=== PATIENT | male | born 1945 | race Caucasian/White ===

== ENCOUNTER 2020-01-14 13:36 | Outpatient (CLI) | payer MEDICARE, OTHER, SELFPAY ==
--- NOTE | ~2020-01-14 | CT_ITS ---
EXAMINATION: CT lung screening EXAM DATE: 01/14/2020 15:14 INDICATION: Personal history of nicotine dependence. TECHNIQUE: Spiral low dose CT of the chest without contrast. Axial, coronal and sagittal images were reviewed. The dose-length product (DLP) for this examination was 97.73 mGy-cm. The exposure was ta ilored according to patient size (auto mA exposure control), and iterative reconstruction (ASIR) was used as additional dose reduction technique. Comparison is made to prior examination from 07/15/2016. FINDINGS: Chronic left lower lobe medial segmental atelectasis unchanged. There are a couple of 2-3 mm nodules identified, axial images 76, 57. Tracheobronchial tree is patent. There is no mediastina l, hilar or axillary lymphadenopathy. There are no pleural or pericardial effusions. There is no pneumothorax. Heart normal in size. There is minimal coronary arterial calcification, arterial sc lerosis. Upper abdomen is unremarkable. There is mild thoracic spondylosis without osteoblastic or osteolytic lesions identified. IMPRESSION: Lung-RADS category 2, benign appearance or behavior (<1% chance of malignancy); recommend continued LDCT screening in 1 year. Reviewed, dictated and finalized at location A.
== END 2020-01-14 13:37 | disposition home or self-care (01) ==
PROVIDERS: PCP Family Medicine; Visit Provider Physician Assistant
DX: Z12.2 Encounter for screening for malignant neoplasm of respiratory organs (principal); Z87.891 Personal history of nicotine dependence
CPT/HCPCS: G0297

== ENCOUNTER 2021-09-28 10:21 | Outpatient (CLI) | payer MEDICARE, OTHER, SELFPAY ==
--- NOTE | 2021-09-28 10:30 | ECG_ITS ---
Measurements Intervals [place] Rate: 92 P: 64 UT: 197 QRS: 38 QRSD: 94 T: 58 QT: 347 QTc: 431 Interpretive Statements SINUS RHYTHM WITH SINUS ARRHYTHMIA BASELINE ARTIFACT- I, II, III, AVR, AVL, AVF, V1-V2 NORMAL ECG Electronically Signed On 09-28-2021 11:03:45 COMPUTER INFORMATION SYSTEMS PROFESSOR by Roque Urban D.O.
[2021-09-28 10:49] LABS: Basophils Absolute Auto 0.1 K/mm3 (0.0-0.1); Basophils Percent Auto 0.5 % (0.2-1.2); Eosinophils Absolute Auto 0.4 K/mm3 (0-0.3); Eosinophils Percent Auto 2.4 % (0-4.4); Hematocrit 47.1 % (42.0-52.0); Hemoglobin 15.5 g/dL (14.0-18.0); Immature Granulocyte Absolute 0.08 K/mm3 (0.00-0.031); Immature Granulocyte Percent A 0.5 % (0-0.5); Lymphocytes Absolute Auto 1.79 K/mm3 (0.9-3.2); Lymphocytes Percent Auto 11.8 % (18.3-44.2); Mean Corpuscular HGB Conc 32.9 g/dl (32-36); Mean Corpuscular Hemoglobin 31.8 pg (26-34); Mean Corpuscular Volume 96.5 fl (80-100); Mean Platelet Volume 8.9 fl (7.4-10.4); Monocytes Absolute Auto 0.9 K/mm3 (0.1-0.6); Monocytes Percent Auto 6.1 % (2.6-8.5); Neutrophils Absolute Auto 11.9 K/mm3 (1.3-6.7); Neutrophils Percent Auto 78.7 % (45.5-73.1); Platelet Count Result 223 k/mm3 (150-375); Red Blood Count 4.88 M/mm3 (4.6-6.20); Red Cell Distribution Width 14.1 % (11.5-14.5); White Blood Count 15.2 K/mm3 (4.5-10.0)
[2021-09-28 11:00] LABS: Prothrombin Time 13.1 Seconds (11.1-14.7)
[2021-09-28 11:01] LABS: Partial Thromboplastin Time 29.4 SECONDS (22.3-36.8)
[2021-09-28 11:02] LABS: Anion Gap 4 mmol/L (8-16); Blood Urea Nitrogen 12 mg/dL (9-20); Calcium 9.3 mg/dL (8.4-10.2); Carbon Dioxide 29 mmol/L (22-30); Chloride 101 mmol/L (98-107); Estimated Glomerular Filt Rate > 60; Glucose 112 mg/dL (65-110); Potassium 3.8 mmol/L (3.4-5.0); Sodium 134 mmol/L (137-145)
== END 2021-09-28 10:22 | disposition home or self-care (01) ==
LOC: ANHSURGERY 10:24
PROVIDERS: PCP Family Medicine; Visit Provider Urology
DX: Z01.818 Encounter for other preprocedural examination (principal); N32.9 Bladder disorder, unspecified; E78.5 Hyperlipidemia, unspecified; I49.9 Cardiac arrhythmia, unspecified; Z51.81 Encounter for therapeutic drug level monitoring; Z79.899 Other long term (current) drug therapy
CPT/HCPCS: 36415; 80048; 85025; 85610; 85730; 87086; 87147; 87181; 87186; 93005

== ENCOUNTER 2021-10-05 01:48 | Day surgery (SDC) | payer MEDICARE, OTHER, SELFPAY ==
[2021-09-23 11:18] VITALS: BMI 22.8
--- NOTE | 2021-09-23 11:24 | PC.NURSE ---
Report to the Outpatient Waiting Room, entrance under the green pavilion located off [facility], at time 0730 on date __10/05/21 . OR Time: . - You and your visitor will be asked a series of questions to screen for COVID 19 for your protection. - A mask is required within the hospital. Preoperative COVID Testing Requirements: No COVID Test needed if: (proof is required; if not received patient will have Rapid Test prior to entry) - Patient has received COVID Vaccine at least 14 days prior to procedure date or - Patient has positive COVID test result within last 90 days of surgery date. COVID Test needed if above criteria is not met If not COVID vaccinated a COVID test must be conducted within 72 hours of surgery and patient is asked to isolate self from time of testing until procedure. You will go to the [facility] for your COVID testing. The [facility] is located at the corner of [address] [facility]. You will only be called if COVID results are positive and your surgeon may reschedule your elective surgery date. Patients may have clear liquids (water, carbonated beverages, clear teas, apple juice) until 3 hours prior to surgery with a maximum of 20 ounces. - No food from midnight until time of surgery - Infants may have breast milk until 4 hours before surgery, infant formula 6 hours prior to surgery. - Children will be allowed to drink immediately following surgery. If applicable, please bring a bottle or sippy cup to assist with drinking. Juice, water, soda, and popsicles are readily available. For infants on formula, please bring formula the day of surgery. Pacifiers are allowed. Take the following medications with a SIP of water the morning of surgery: _NONE Medications to discontinue per physician ____ALL VITAMINS 3 DAYS PRE OP Date to take last dose10/01/21 Please no make-up, nail welsh, hairspray, perfume, deodorant, or body powder the day of surgery. No jewelry (including any body piercings) or valuables the day of surgery, leave them at home. Please take a shower or bath the night before, or the morning of, surgery with an antibacterial soap. Wear comfortable, loose fitting clothing. Children are encouraged to wear pajamas. - Jewelry must be removed prior to entering the operating room. Rings and piercings that are not removed may be cut off. - The hospital will not accept responsibility for valuables. - Please leave all valuables, including medications, at home the day of surgery. If you are going home after surgery, a licensed day haul or farm charter bus driver must drive you home. - NO public transportation without another adult. - We recommend that an adult stay with you for 24 hours following discharge. - We also recommend that you do not drive, make important decision, drink alcoholic beverages, or take any drugs that were not prescribed by your health care provider for at least 24 hours after your discharge time. For Pediatric surgeries, we recommend two adults accompany the child home (only one inside the building at this time). One visitor will be allowed to accompany the patient into the hospital. Patients visitor will be instructed to remain with patient at all times or leave the building. We will allow the visitor to come back to the postoperative area when patient is ready. Follow any additional instructions given to you from your surgeon. Telephone instructions given to _PATIENT and asked if any additional questions and then verbalized understanding. Patient advised to call surgeon office or pre surgery nurse liaison [phone] if any additional questions.
--- NOTE | ~2021-10-05 | XR_ITS ---
EXAMINATION: XR retrograde pyelo w/stent RT DATE: 10/05/2021 09:34 INDICATION: Right internal ureteral stent placement TECHNIQUE: Fluoroscopic images from a right internal ureteral stent placement are submitted for daniel dalal 36 seconds of fluoroscopy time. FINDINGS: There is a right double-J internal ureteral stent projecting in expected position, with proximal Stanton loop at the level of the renal pelvis and distal loop in the pelvis within the bladder lumen. IMPRESSION: 1. Right internal ureteral stent placement. Please refer to real-time procedural findings for detai ls. Reviewed, dictated and finalized at location A. LINE OPERATOR IMPRESSION: 1. Right internal ureteral stent placement. Please refer to real-time procedu ral findings for details.
--- NOTE | 2021-10-05 07:35 | WPDHPUPDATE1 ---
History and Physical Update Update Date/Time: 10/05/21 07:35 History and Physical has been reviewed, including an updated exam of the patient. There are NO changes in the patient's condition. Risks, benefits, and alternatives have been discussed and questions answered. Patient agrees to proceed with procedure. Proceed with turbt
[2021-10-05 07:57] VITALS: BP 116/79; PULSE 73; RESP 16; TEMP 36.9; O2SAT 97
--- NOTE | 2021-10-05 08:41 | WPDANESEPPF ---
Anes - Initial Pre Proc Eval Procedure: Operation Date: 10/05/21 09:30 Proposed Procedures p Trans Urethral Resection Bladder Tumor - Markus Moreno MD s Possible Cystoscopy, Possible Right Stent Placement - Markus Moreno MD Date/Time: 10/05/21 08:41 Surgeon: Markus Moreno MD Pre Op Diagnosis: bladder lesion, gross hematuria Patient Data Age: 76 Gender: M Height: 1.75 m Weight: 69.4 kg Last Vital Signs Temp 36.9 C 10/05/21 07:57 Pulse 73 10/05/21 07:57 Resp 16 10/05/21 07:57 BP 116/79 10/05/21 07:57 Pulse Ox 97 10/05/21 07:57 Allergies Allergy/AdvReac Type Severity Reaction Status Date / Time No Known Allergies Allergy Verified 10/05/21 07:33 Home Medications Medication Instructions Recorded Confirmed Type atorvastatin [Lipitor] 10 mg PO EVERY OTHER DAY 09/23/21 10/05/21 History multivit with min-folic acid 1 tablet PO DAILY 09/23/21 10/05/21 History [Adult One Daily Multivitamin] sulfamethoxazole-trimethoprim 1 tablet PO BID 10/05/21 10/05/21 History Patient hx anesthesia problems: none Family hx anesthesia problems: none Results Review: All pre-operative results and documents have been reviewed as part of the pre-operative evaluation. [facility] Past Medical History Medical History COPD (chronic obstructive pulmonary disease) Overweight (BMI 25.0-29.9) Tubular adenoma Family History Family History Mother Patient's mother is Father Family history of cardiovascular disease Cerebrovascular accident Social History Social History Smoking packs per day: 1 Smoking cigarettes per day: 20.0 Years smoked: 58 Smoking pack-years: 58.00 Smoking status: Current every day smoker Tobacco type: cigarettes Alcohol intake: current Drinks per week: 28 Alcohol use details: WHISKEY Living arrangements: with family Spiritual care concerns: No Anes - Eval Final PreProcedure Day of Procedure 10/05/21 08:41 Patient weight: normal Heart: regular rate and rhythm Lungs: decreased breath sounds Airway: Mallampati scale class II Neurological: alert and oriented Last oral intake: >/= 8 hours ASA classification: III Emergent: no Anesthetic plan: proceed Anesthesia type and monitoring: general LMA and standard monitoring Results Review: All pre-operative results and documents have been reviewed as part of the pre-operative evaluation. Informed Consent: The patient's anesthetic plan and its attendant risks and benefits were discussed with the patient/family/POA. Questions were solicited and answers provided to the satisfaction of the patient/family/POA.
[2021-10-05] MEDS: ceFAZolin 2 GM/D5W 50 ML 2 GM/50 ML BAG IVPB (08:49)
--- NOTE | 2021-10-05 09:22 | SUR.OPER ---
6fr CONTOUR RIGHT URETERAL STENT
[2021-10-05] MEDS: LIDOCAINE HCL 2% GEL UROJET 10 ML PKG MUCOUS MEM (09:26)
--- NOTE | 2021-10-05 09:29 | W.PM.PROC2 ---
Procedure Note - Detailed Date of Procedure 10/05/21 Pre-op Diagnosis bladder lesion, gross hematuria Post-op Diagnosis same Procedure Performed Cystoscopy, right retrograde pyelogram, right ureteral stent placement 6 Portuguese contour, transurethral resection of small bladder tumor 1.5 cm Surgeon Markus Moreno MD Anesthesia general Description of Procedure Patient is taken to the operative suite correctly identified. Once anesthesia was obtained he was placed in dorsal lithotomy position and prepped draped usual sterile fashion. The urethra was dilated up to 30 Portuguese. Twenty-four Portuguese resectoscope sheath was inserted into bladder. He has a 1.5 cm tumor just lateral and superior to the right ureteral orifice. This tumor was then resected and the base was sent separately. Given its location it was difficult to take a very deep bite as it was where the intramural ureter was. Hemostasis was achieved using electrocautery. We then did a pyelogram and placed a 6 Portuguese contour stent with the proximal end coiled in the renal pelvis this the bladder. This allowed the area to heal and hopefully prevent any scarring or scar tissue to compromise the intramural ureter. 2% viscous lidocaine was inserted urethra patient is taken recovery stable condition. Will plan on removing the stent in 2 weeks time. Estimated Blood Loss 0 Drains Yes Packing No Pathology yes Complications No immediate complications Condition stable Disposition PACU
[2021-10-05 09:35] VITALS: BP 121/84; PULSE 82; RESP 16; TEMP 36.9; O2SAT 100
[2021-10-05] MEDS: LACTATED RINGERS 1,000 ML 30 ML IV CONT ×2 (09:35)
[2021-10-05 09:49] VITALS: BP 105/73; PULSE 69; RESP 18; O2SAT 100
[2021-10-05 10:05] VITALS: BP 122/72; PULSE 67; RESP 19; O2SAT 96
[2021-10-05 10:15] VITALS: BP 113/76; PULSE 66; RESP 16
[2021-10-05 10:40] VITALS: BP 122/77; PULSE 79; RESP 16
== END 2021-10-05 10:45 | disposition home or self-care (01) ==
PROVIDERS: PCP Family Medicine; Visit Provider Urology
PROC: 0TBB8ZZ Excision of Bladder, Via Natural or Artificial Opening Endoscopic (ICD-10-PCS; CPT 52234; principal; 2021-10-05 09:30)
PROC: (CPT 52352; 2021-10-05 09:30)
DX: C67.8 Malignant neoplasm of overlapping sites of bladder (principal); R31.0 Gross hematuria; J44.9 Chronic obstructive pulmonary disease, unspecified; F17.210 Nicotine dependence, cigarettes, uncomplicated
CPT/HCPCS: 52234; 74420; 88305; A9270; C1758; C1769; C2617; J0690; J1100; J2250; J2405; J2704; J3010; J7120; Q9966

== ENCOUNTER 2021-10-06 19:26 | Emergency (ER) | payer MEDICARE, OTHER, SELFPAY ==
[2021-10-06 19:26] VITALS: BP 119/102; PULSE 79; RESP 18; TEMP 36.7; O2SAT 97
[2021-10-06 19:39] VITALS: BP 114/81; PULSE 82; RESP 22; TEMP 36.6; O2SAT 100
--- NOTE | 2021-10-06 20:09 | ED.MALEGU ---
HPI - Male Genitourinary General Chief complaint: Urogenital-Male Stated complaint: POST-OP HEMATURIA Time Seen by Provider: 10/06/21 19:45 Source: patient History of Present Illness HPI Narrative: Patient presents with hematuria. Reports he had a mass removed from his bladder yesterday as a small amount of hematuria that cleared was doing well and then had return of his hematuria he was concerned regarding the volume so he came to the ER for further evaluation. Denies any lightheadedness denies any abdominal pain reports he is able to completely void denies passage of blood clots. Denies use of blood thinners. Related Data Home Medications Medication Instructions Recorded Confirmed atorvastatin [Lipitor] 10 mg PO EVERY OTHER DAY 09/23/21 10/05/21 multivit with min-folic acid 1 tablet PO DAILY 09/23/21 10/05/21 sulfamethoxazole-trimethoprim 1 tablet PO BID 10/05/21 10/05/21 Allergies Allergy/AdvReac Type Severity Reaction Status Date / Time No Known Allergies Allergy Verified 10/05/21 07:33 Review of Systems Review of Systems: CONSTITUTIONAL: Denies fever, chills, or sweats. EYES: Denies visual changes, redness, or discharge. ENT: Denies rhinorrhea, congestion, sore throat, or otalgia. CARDIOVASCULAR: Denies chest pain, palpitations, or edema. RESPIRATORY: Denies cough or dyspnea. GASTROINTESTINAL: Denies abdominal pain, nausea, vomiting, or diarrhea. GENITOURINARY: Denies dysuria or hematuria. SKIN: Denies rash or itching. MUSCULOSKELETAL: Denies back pain, joint pain, or myalgia. NEUROLOGIC: Denies headache, numbness, dizziness, or weakness. PSYCHIATRIC: Denies anxiety or depression. All systems reviewed & are unremarkable except as noted in HPI and below PMFSH Past Medical History Medical History COPD (chronic obstructive pulmonary disease) Overweight (BMI 25.0-29.9) Tubular adenoma Family History Family History Mother Patient's mother is Father Family history of cardiovascular disease Cerebrovascular accident Social History Social History Smoking packs per day: 1 Smoking cigarettes per day: 20.0 Years smoked: 58 Smoking pack-years: 58.00 Smoking status: Current every day smoker Tobacco type: cigarettes Alcohol intake: current Drinks per week: 28 Alcohol use details: MILEY Spiritual care concerns: No Exam Narrative: GENERAL: Well-appearing, well-nourished, and in no acute distress. HEAD: Normocephalic, atraumatic. EYES: PERRLA and EOMI. ENT: Nares clear, no rhinorrhea or epistaxis. Mucous membranes moist. NECK: Supple. No masses. No JVD ABDOMEN: Soft, nontender, nondistended, normal active bowel sounds. Urine at bedside with gross hematuria no clots EXTREMITIES: Normal range of motion. No edema. SKIN: Warm, dry, no rash. NEURO: No focal deficits. Alert and oriented x3. PSYCH: Normal mood and affect. Course Reevaluation(s) Reevaluation #1: Discussed with Dr. Roach with urology hematuria likely related to recent procedure and is appropriate to follow-up with his urologist as an outpatient. Patient is comfortable outpatient plan. Date: 10/06/21 Time: 20:18 Vital Signs Vital signs: Vital Signs Temperature 36.7 C 10/06/21 19:26 Pulse Rate 79 10/06/21 19:26 Respiratory Rate 18 10/06/21 19:26 Blood Pressure 119/102 H 10/06/21 19:26 Pulse Oximetry 97 10/06/21 19:26 Temperature 36.6 C 10/06/21 19:39 Pulse Rate 82 10/06/21 19:39 Respiratory Rate 22 H 10/06/21 19:39 Blood Pressure 114/81 10/06/21 19:39 Pulse Oximetry 100 10/06/21 19:39 MDM - Male Genitourinary MDM Narrative Medical decision making narrative: H&P as above, vss, pt looks clinically well, exam no abdominal pain, labs/img considered, symptomatic relief available as needed, on re
== END 2021-10-06 21:00 | disposition home or self-care (01) ==
LOC: ANHED 20:41
PROVIDERS: Emergency Provider Emergency Medicine; PCP Family Medicine
DX: R31.9 Hematuria, unspecified (principal); Z98.890 Other specified postprocedural states; J44.9 Chronic obstructive pulmonary disease, unspecified; E66.3 Overweight; Z68.22 Body mass index [BMI] 22.0-22.9, adult; F17.210 Nicotine dependence, cigarettes, uncomplicated
CPT/HCPCS: 99281

== ENCOUNTER 2021-12-21 01:09 | Day surgery (SDC) | payer MEDICARE, OTHER, SELFPAY ==
[2021-12-09 10:47] VITALS: BMI 22.8
[2021-12-21 08:28] VITALS: BP 104/83; PULSE 102; RESP 16; TEMP 36.1; O2SAT 100
[2021-12-21] MEDS: LACTATED RINGERS 1,000 ML 150 ML IV CONT (08:38)
--- NOTE | 2021-12-21 08:39 | P.PNAN_ITS ---
Anes - Initial Pre Proc Eval Procedure: Operation Date: 12/21/21 09:45 Proposed Procedures p Screening Colonoscopy - Cruzito Goss MD Date/Time: 12/21/21 08:39 Surgeon: Cruzito Goss MD Pre Op Diagnosis: hx of colon polyps Patient Data Age: 76 Gender: M Height: 1.75 m Weight: 67.1 kg Last Vital Signs Temp 97 F L 12/21/21 08:28 Pulse 102 H 12/21/21 08:28 Resp 16 12/21/21 08:28 BP 104/83 12/21/21 08:28 Pulse Ox 100 12/21/21 08:28 Allergies Allergy/AdvReac Type Severity Reaction Status Date / Time No Known Allergies Allergy Verified 12/21/21 08:27 Home Medications Medication Instructions Recorded Confirmed Type atorvastatin [Lipitor] 10 mg PO EVERY OTHER DAY 09/23/21 12/09/21 History multivit with min-folic acid 1 tablet PO DAILY 09/23/21 12/09/21 History sulfamethoxazole-trimethoprim 1 tablet PO BID 10/05/21 12/09/21 History [Bactrim DS] Patient hx anesthesia problems: none Family hx anesthesia problems: none Results Review: All pre-operative results and documents have been reviewed as part of the pre-operative evaluation. [facility] Past Medical History Medical History COPD (chronic obstructive pulmonary disease) Overweight (BMI 25.0-29.9) Tubular adenoma Family History Family History Mother Patient's mother is Father Family history of cardiovascular disease Cerebrovascular accident Social History Social History Smoking packs per day: 1 Smoking cigarettes per day: 20.0 Years smoked: 53 Smoking pack-years: 53.00 Smoking status: Current every day smoker Tobacco type: cigarettes Alcohol intake: current Drinks per week: 28 Alcohol use details: WHISKEY Substance use type: does not use Spiritual care concerns: No Anes - Eval Final PreProcedure Day of Procedure 12/21/21 08:39 Patient weight: normal Heart: regular rate and rhythm Lungs: clear to auscultation Airway: Mallampati scale class II Neurological: alert and oriented Last oral intake: >/= 8 hours ASA classification: III Emergent: no Anesthetic plan: proceed Anesthesia type and monitoring: general GIVS and standard monitoring Results Review: All pre-operative results and documents have been reviewed as part of the pre-operative evaluation. Informed Consent: The patient's anesthetic plan and its attendant risks and benefits were discussed with the patient/family/POA. Questions were solicited and answers provided to the satisfaction of the patient/family/POA.
--- NOTE | 2021-12-21 08:40 | WPDGICN ---
Assessment and Plan Assessment and plan (1) History of colon polyps: Code(s): Z86.010 - Personal history of colonic polyps Status: Acute Assessment and Plan: Patient has a history of a colon polyp removed from the colon in 2020. Plan is for surveillance colonoscopy at this time. Further recommendations will be given after endoscopy. GI Consult Note Consult date/time: 12/21/21 08:40 HPI: Jose Luis Han is a 76 year old male Presents for screening colonoscopy. Patient has a history of benign colon polyp removed from the colon in 2019. He reports his current weight appetite bowel movements are normal. He is recovering having recently been found to have bladder cancer. Screening colonoscopy is advised at this time. His family history is noncontributory. Review of Systems Review of Systems: All systems reviewed & are unremarkable except as noted in HPI and below PMFSH Past Medical History Medical History COPD (chronic obstructive pulmonary disease) Overweight (BMI 25.0-29.9) Tubular adenoma Family History Family History Mother Patient's mother is Father Family history of cardiovascular disease Cerebrovascular accident Social History Social History Smoking packs per day: 1 Smoking cigarettes per day: 20.0 Years smoked: 53 Smoking pack-years: 53.00 Smoking status: Current every day smoker Tobacco type: cigarettes Alcohol intake: current Drinks per week: 28 Alcohol use details: HALIEEY Substance use type: does not use Spiritual care concerns: No Meds Home Medications and Allergies Home Medications Medication Instructions Recorded Confirmed Type atorvastatin [Lipitor] 10 mg PO EVERY OTHER DAY 09/23/21 12/09/21 History multivit with min-folic acid 1 tablet PO DAILY 09/23/21 12/09/21 History sulfamethoxazole-trimethoprim 1 tablet PO BID 10/05/21 12/09/21 History [Bactrim DS] Allergies Allergy/AdvReac Type Severity Reaction Status Date / Time No Known Allergies Allergy Verified 12/21/21 08:27 Vital Signs Vital Signs - 24 hr 12/21/21 08:28 Temperature 97 F L Pulse Rate 102 H Respiratory Rate 16 Blood Pressure 104/83 Pulse Oximetry 100 Exam Narrative: Physical exam reveals patient to be alert. Vital signs stable. HEENT exam is unremarkable. Patient is anicteric. Lungs are clear to auscultation and percussion. Heart is without murmur or extra sounds. Abdominal exam bowel sounds are present soft nontender with no hepatosplenomegaly. Digital external rectal exam is normal.
[2021-12-21 08:58] VITALS: BP 92/67; PULSE 78; RESP 23; O2SAT 95
[2021-12-21 09:11] VITALS: BP 97/72; PULSE 80; RESP 26; O2SAT 98
[2021-12-21 09:19] VITALS: BP 104/78; PULSE 78; RESP 20; O2SAT 96
== END 2021-12-21 09:25 | disposition home or self-care (01) ==
PROVIDERS: PCP Family Medicine; Visit Provider Internal Medicine Gastroenterology
PROC: 0DJD8ZZ Inspection of Lower Intestinal Tract, Via Natural or Artificial Opening Endoscopic (ICD-10-PCS; CPT 45378; principal; 2021-12-21 09:45)
DX: Z12.11 Encounter for screening for malignant neoplasm of colon (principal); K63.5 Polyp of colon; K64.8 Other hemorrhoids; K57.30 Diverticulosis of large intestine without perforation or abscess without bleeding; J44.9 Chronic obstructive pulmonary disease, unspecified; F17.210 Nicotine dependence, cigarettes, uncomplicated
CPT/HCPCS: 45385; 88305; J2704; J7120

== ENCOUNTER → 2022-02-04 12:45 | Outpatient (CLI) | payer MEDICARE, OTHER, SELFPAY ==
--- NOTE | ~2022-02-04 | US_ITS ---
EXAMINATION: US retroperitoneal comp DATE: 02/04/2022 13:11 INDICATION: Complicated urinary tract infection, history of bladder cancer TECHNIQUE: Multiple grayscale and Doppler ultrasound images of the kidneys were obtained. COMPARISON: None. FINDINGS: The right kidney measures 11.3 x 5.5 x 5.7 cm. The left kidney measures 10.6 x 5.8 x 6.0 cm . The kidneys demonstrate normal parenchymal echogenicity. Cysts of the kidneys measure up to 2.6 cm on the right and 2.7 cm on the left. There is no hydronephrosis. Mild apparent wall thickening of the urinary bladder likely relates to treatment for bladder cancer. IMPRESSION: 1. Normal kidneys without hydronephrosis. Reviewed, dictated and finalized at location F.
== END ==
PROVIDERS: PCP Family Medicine; Visit Provider Urology
DX: N39.0 Urinary tract infection, site not specified (principal)
CPT/HCPCS: 76770

== ENCOUNTER 2022-09-07 11:02 | Outpatient (CLI) | payer MEDICARE, OTHER, SELFPAY ==
--- NOTE | ~2022-09-07 | MR_ITS ---
EXAMINATION: MR MRCP wo/w con/w 3D wo ind DATE: 09/07/2022 12:25 INDICATION: Cystic mass of the pancreas TECHNIQUE: Magnetic resonance imaging (MRI) of the abdomen was performed without and with intravenous contrast. Sequences included coronal T2-weighted SS-FSE ARC, coronal T2-weighted FS SS-FSE, coronal T2-weighted 2D FS FIESTA, Water:Coronal LAVA-Flex, sagittal T2-weighted SS-FSE ARC, axial SSFSE ARC, axial 3D DualEcho, axial DWI B=600, axial T1-weighted LAVA, FAT:Coronal LAVA-Flex, and coronal in and opposed phase LAVA-Flex. Thick-slab T2-weighted FRFSE-XL images were obtained for magnetic resonance cholangiopancreatography (MRCP). Maximum intensity projection 3-D reconstructions of the volumetric data were created by the technologist. Postcontrast sequences included a time course of axial T1-weig hted LAVA, FAT:Coronal LAVA-Flex, coronal in and opposed phase LAVA-Flex, and Water:Coronal LAVA-Flex . COMPARISON: CT, 01/14/2020 CONTRAST: Multihance, 13 cc FINDINGS: ABDOMEN MRI: The liver, spleen, gallbladder, and adrenal glands are normal. There are multiple cysts of the kidneys which measure up to 3.3 cm on the left. There is a 1.6 cm cystic mass in the neck/body of the pancreas without communication with the main pancreatic duct. The mass is stable when compare d to chest CT from 01/14/2020. No abnormal enhancement is present after contrast administration. There are no pathologically enlarged abdominal lymph nodes. There are no dilated loops of bowel. ABDOMEN MRCP: There is no intrahepatic or extrahepatic biliary dilatation. The pancreatic duct is nor mal in course and caliber. IMPRESSION: 1. Stable 1.6 cm cystic mass of the pancreas without communication with the main pancreatic duct. The differential diagnosis includes pseudocyst, intraductal papillary mucinous neoplasm (IPMN), mucinous cystic neoplasm (MCN), and the less common serous cystadenoma and neuroendocrine tumor. Correlate fo r history of pancreatitis. Follow-up pancreas protocol CT or MRI in one year is recommended. Reviewed, dictated and finalized at location F. RNAL AUDITOR IMPRESSION: 1. Stable 1.6 cm cystic mass of the pancreas without communication with the fannie n pancreatic duct. The differential diagnosis includes pseudocyst, intraductal papillary mucinous neoplasm (IPMN), mucinous cystic neoplasm (MCN), and the les s common serous cystadenoma and neuroendocrine tumor. Correlate for history of pancreatitis. Follow-up pancreas protocol CT or MRI in one year is recommended.
== END 2022-09-07 11:03 | disposition home or self-care (01) ==
PROVIDERS: PCP Family Medicine; Visit Provider Family Medicine
DX: K86.2 Cyst of pancreas (principal); K86.9 Disease of pancreas, unspecified; R63.4 Abnormal weight loss
CPT/HCPCS: 74183; 76376; A9577

== ENCOUNTER 2022-12-02 08:30 | Outpatient (CLI) | payer MEDICARE, OTHER, SELFPAY ==
--- NOTE | ~2022-12-02 | CT_ITS ---
CT of the Abdomen and Pelvis: Indication: Bladder carcinoma Technique: 2.5 mm axial scans were obtained through the abdomen and pelvis prior to and following in travenous administration of 130 cc of Omnipaque 350. Dose reduction technique was used on this scan b y utilizing automated exposure control and iterative reconstruction technique. The dose-length produc t (DLP) was 1089.21 mGy-cm. Findings: Scans through the lung bases demonstrate probable left basilar scarring, stable since 2019. The liver, spleen, pancreas, gallbladder, and adrenal glands are within normal limits. Numerous bilat eral renal cysts are present. No evidence of aortic aneurysm. No lymphadenopathy. No bowel obstruction or bowel wall thickening. There is no evidence to suggest acute appendicitis. Co lonic diverticulosis noted. Images through the pelvis were performed. Questionable minimal wall thickening the bladder base. No m ass lesion clearly evident. Prostate gland and seminal vesicles are unremarkable. No lymphadenopathy evident. No ascites. Impression: Questionable minimal urinary bladder wall thickening at the base. No mass lesion clearly evident. If there is persistent clinical concern for bladder carcinoma, consider cystoscopy. Reviewed, dictated and finalized at location M. Impression: Questionable minimal urinary bladder wall thickening at the base. No mass lesio n clearly evident. If there is persistent clinical concern for bladder carcinom a, consider cystoscopy.
[2022-12-02 08:57] LABS: Estimated Glomerular Filt Rate 59
== END 2022-12-02 08:31 | disposition home or self-care (01) ==
PROVIDERS: PCP Family Medicine; Visit Provider Urology
DX: C67.0 Malignant neoplasm of trigone of bladder (principal)
CPT/HCPCS: 74178; Q9967

== ENCOUNTER 2023-08-22 01:13 | Day surgery (SDC) | payer MEDICARE, OTHER, SELFPAY ==
[2023-08-21 08:55] VITALS: BMI 22.9
--- NOTE | 2023-08-21 09:05 | PC.NURSE ---
Report to the Outpatient Waiting Room, entrance under the green pavilion located off [facility], at time ___1030____ on date __08/22/23 . Planned Procedure Time: ___1230 . PACK A SMALL OVERNIGHT BAG AND LEAVE IT IN THE CAR Time changes happen often and if your time is changed the preop area will call you the afternoon before. - You and your visitor will be asked to self-screen and do not enter if you have any COVID symptoms. - A mask is optional within the hospital at this time. Patients may have clear liquids (water, carbonated beverages, clear teas, apple juice) until 3 hours prior to surgery (0930 am) with a maximum of 20 ounces. - No food from midnight until time of surgery - Infants may have breast milk until 4 hours before surgery, formula 6 hours prior to surgery. - Children will be allowed to drink immediately following surgery. If applicable, please bring a bottle or sippy cup to assist with drinking. Juice, water, soda, and popsicles are readily available. For infants on formula, please bring formula the day of surgery. Pacifiers are allowed. Take the following medications with a SIP of water the morning of surgery: NONE DO NOT STOP ANY OF YOUR OTHER PRESCRIPTION MEDICATIONS PRIOR TO SURGERY ?EXCEPT THE FOLLOWING Medications to discontinue per physician MULTIVITAMIN OF TODAY Date to take last dose___08/21/23 Please no make-up, nail welsh, hairspray, perfume, deodorant, or body powder the day of surgery. No jewelry (including any body piercings) or valuables the day of surgery, leave them at home. Please take a shower or bath the night before, or the morning of, surgery with an antibacterial soap. Wear comfortable, loose fitting clothing. Children are encouraged to wear pajamas. - Jewelry must be removed prior to entering the operating room. Rings and piercings that are not removed may be cut off. - The hospital will not accept responsibility for valuables. - Please leave all valuables, including medications, at home the day of surgery. If you are going home after surgery, a licensed snaker tractor driver must drive you home. - NO public transportation without another adult if you receive anesthesia. - We recommend that an adult stay with you for 24 hours following discharge. - We also recommend that you do not drive, make important decision, drink alcoholic beverages, or take any drugs that were not prescribed by your health care provider for at least 24 hours after your discharge time. For Pediatric surgeries, we recommend two adults accompany the child home. Follow any additional instructions given to you from your surgeon. If you or anyone in your household have experienced Covid symptoms in the past week, please notify your surgeon or the nurse liaison at the phone number below for possible testing. Telephone instructions given to PT____and asked if any additional questions and then verbalized understanding. Patient advised to call surgeon office or pre surgery nurse liaison [phone] if any additional questions.
--- NOTE | 2023-08-21 15:20 | WPDANESEPPF ---
Anes - Initial Pre Proc Eval Procedure: Operation Date: 08/22/23 12:30 Proposed Procedures p Trans Urethral Resection Prostate - Markus Moreno MD Date/Time: 08/21/23 15:20 Surgeon: Markus Moreno MD Pre Op Diagnosis: BPH, urinary retention Patient Data Age: 78 Gender: M Height: 1.75 m Weight: 70.45 kg Allergies Allergy/AdvReac Type Severity Reaction Status Date / Time No Known Allergies Allergy Verified 08/22/23 10:48 Home Medications Medication Instructions Recorded Confirmed Type multivitamin with minerals-folic 1 tablet PO DAILY 09/23/21 08/21/23 History acid 0.4 mg tablet tamsulosin 0.4 mg capsule 1 mg PO DAILY 11/23/22 08/21/23 History atorvastatin 10 mg tablet See Rx Instructions .Route 02/22/23 08/21/23 Rx .COMPLEX #45 tabs Patient hx anesthesia problems: none Family hx anesthesia problems: none Results Review: All pre-operative results and documents have been reviewed as part of the pre-operative evaluation. [facility] Past Medical History Medical History COPD (chronic obstructive pulmonary disease) Overweight (BMI 25.0-29.9) Tubular adenoma Family History Family History Mother Patient's mother is Father Family history of cardiovascular disease Cerebrovascular accident Social History Social History Smoking packs per day: 1 Smoking cigarettes per day: 20.0 Years smoked: 54 Smoking pack-years: 54.00 Smoking status: Current every day smoker Tobacco type: cigarettes Second hand tobacco smoke exposure: Yes Alcohol intake: current Drinks per week: 28 Alcohol use details: WHISKEY Substance use: never Substance use type: does not use Lack of Transportation: No Lack of Food: Never True Current Housing: I Have Housing Concerned About Future Housing: No Difficulty Paying Gas/Electric Bills: No Difficulty Paying for Meds: No Currently Unemployed: No Education: Bachelor's Degree Difficulty w/ Childcare or Family Care: No Living arrangements: with family Spiritual care concerns: No Anes - Eval Final PreProcedure Day of Procedure 08/21/23 15:20 Patient weight: normal Heart: regular rate and rhythm Lungs: clear to auscultation Airway: Mallampati scale class II Neurological: alert and oriented Last oral intake: >/= 8 hours ASA classification: III Emergent: no Anesthetic plan: proceed Anesthesia type and monitoring: general LMA and standard monitoring Results Review: All pre-operative results and documents have been reviewed as part of the pre-operative evaluation. Informed Consent: The patient's anesthetic plan and its attendant risks and benefits were discussed with the patient/family/POA. Questions were solicited and answers provided to the satisfaction of the patient/family/POA.
[2023-08-22] VITALS (14 sets, daily range): BP systolic 107–135; BP diastolic 56–86; PULSE 58–89; RESP 12–18; TEMP 35.9–36.8; O2SAT 93–100
--- NOTE | 2023-08-22 08:03 | ECG_ITS ---
Measurements Intervals [place] Rate: 82 P: 64 MI: 198 QRS: 12 QRSD: 92 T: 66 QT: 366 QTc: 430 Interpretive Statements SINUS RHYTHM WITH SINUS ARRHYTHMIA BASELINE ARTIFACT- III NORMAL ECG COMPARED TO ECG 09/28/2021 10:44:29 NO SIGNIFICANT CHANGES Electronically Signed On 08-22-2023 11:44:35 MACHINE CLOTH TRIMMER by Roque Urban D.O.
--- NOTE | 2023-08-22 10:29 | WPDHPUPDATE1 ---
History and Physical Update Update Date/Time: 08/22/23 10:29 History and Physical has been reviewed, including an updated exam of the patient. There are NO changes in the patient's condition. Risks, benefits, and alternatives have been discussed and questions answered. Patient agrees to proceed with procedure. Proceed with transurethral resection of prostate
[2023-08-22] MEDS: LACTATED RINGERS 1,000 ML 30 ML IV CONT ×2 (10:55→13:32)
[2023-08-22 11:05] LABS: Basophils Absolute Auto 0.1 K/mm3 (0.0-0.1); Eosinophils Absolute Auto 0.5 K/mm3 (0-0.3); Eosinophils Percent Auto 5.8 % (0-4.4); Hematocrit 43.5 % (42.0-52.0); Hemoglobin 13.8 g/dL (14.0-18.0); Immature Granulocyte Absolute 0.02 K/mm3 (0.00-0.031); Immature Granulocyte Percent A 0.2 % (0-0.5); Lymphocytes Absolute Auto 2.61 K/mm3 (0.9-3.2); Lymphocytes Percent Auto 30.2 % (18.3-44.2); Mean Corpuscular HGB Conc 31.7 g/dl (32-36); Mean Corpuscular Hemoglobin 31.5 pg (26-34); Mean Corpuscular Volume 99.3 fl (80-100); Mean Platelet Volume 9.3 fl (7.4-10.4); Monocytes Absolute Auto 0.6 K/mm3 (0.1-0.6); Monocytes Percent Auto 6.7 % (2.6-8.5); Neutrophils Absolute Auto 4.8 K/mm3 (1.3-6.7); Neutrophils Percent Auto 56.1 % (45.5-73.1); Platelet Count Result 232 k/mm3 (150-375); Red Blood Count 4.38 M/mm3 (4.6-6.20); Red Cell Distribution Width 13.2 % (11.5-14.5); White Blood Count 8.6 K/mm3 (4.5-10.0)
[2023-08-22 11:16] LABS: Anion Gap 7 mmol/L (8-16); Blood Urea Nitrogen 15 mg/dL (9-20); Calcium 9.2 mg/dL (8.4-10.2); Carbon Dioxide 27 mmol/L (22-30); Chloride 105 mmol/L (98-107); Estimated CRCL calculation 55 ml/min; Estimated Glomerular Filt Rate > 60; Glucose 102 mg/dL (65-110); Potassium 3.8 mmol/L (3.4-5.0); Sodium 139 mmol/L (137-145)
[2023-08-22 11:17] LABS: Prothrombin Time 13.4 Seconds (11.1-14.7)
[2023-08-22 11:18] LABS: Partial Thromboplastin Time 29.3 SECONDS (22.3-36.8)
[2023-08-22 11:59] LABS: Appearance Urine Cloudy (Clear); Bacteria Urine 4+ /hpf; Bilirubin Urine Negative (Negative); Color Urine Yellow (Yellow); Glucose Urine UA Negative (Negative); Ketones Urine Negative (Negative); Leukocyte Esterase Ur 3+ LEU/UL (Negative); Nitrate Urine Positive (Negative); Non Pathogenic Casts 0-2; Protein Urine Trace mg/dL (Negative); RBC Urine 0-2 /hpf (0-2); Specific Grav Ur 1.016 (1.001-1.035); Squamous Epithelial Cell Urine None seen /hpf (Few); WBC Urine >100 /hpf
[2023-08-22 12:00] LABS: Add Urine Microscopic? YES
[2023-08-22] MEDS: ceFAZolin 2 GM/D5W 50 ML 2 GM/50 ML BAG IVPB (12:37)
--- NOTE | 2023-08-22 13:09 | SUR.OPER ---
DR OVALLE AWARE OF +U/A AND PENDING CULTURE IN PREOP/TO PROCEED AFTER TALKING TO PATIENT IN PREOP.
[2023-08-22] MEDS: LIDOCAINE HCL 2% GEL UROJET 10 ML PKG MUCOUS MEM (13:14)
--- NOTE | 2023-08-22 13:28 | P.OP_ITS ---
Procedure Note - Detailed Date of Procedure 08/22/23 Pre-op Diagnosis BPH, urinary retention Post-op Diagnosis Same Procedure Performed Transurethral resection of prostate Surgeon Markus Moreno MD Anesthesia General Description of Procedure Patient is taken to the operative suite correctly identified. Once anesthesia was obtained was placed in dorsal lithotomy position and prepped and draped usual sterile fashion. Twenty-four [place] resectoscope sheath is inserted in the bladder. He does have somewhat of a capacious bladder. The prostate did not appear overly obstructive in nature although his urodynamics set otherwise. We resected the prostate from the bladder neck to the verumontanum bilaterally and circumferentially. Ureteral orifices and external sphincter were visualized at all times without any evidence of injury. Although the patient did not have any significant amount of prostate tissue he did have a significant amount of prostatic calculi which extruded as we resected the prostate. Specimens were sent for analysis. Hemostasis was achieved using electrocautery. 2% viscous lidocaine was inserted into the urethra patient is taken recovery room after a [address] was placed and inflated with 20 cc. This was connected to continuous bladder irrigation. This completes dictation patient. Please send a copy of op note to my office. Estimated Blood Loss 25 Drains Yes Packing No Pathology Yes Complications No immediate complications Condition Stable Disposition PACU
--- NOTE | 2023-08-22 14:49 | SUR.PHASEI ---
1430-Pt. meets anesthesia criteria for PACU discharge, no IP room available.
--- NOTE | 2023-08-22 15:30 | PC.NURSE ---
This patient, Jose Luis Han, was admitted to 3 [facility] Surg Room 325-02. Patient/family oriented to hospital policies and general routines including ID bracelet, bed and alarms, visiting hours, pain management, procedures, bathroom and other care routines, personal items, smoking policy, room service/diet, and visiting hours. Information on how to activate the Rapid Response Team has been discussed. Patient/Family are encouraged to report perceived risks to care and to ask questions if they do not understand what they are told or what they should do.
[2023-08-22] MEDS: DOCUSATE SODIUM 100 MG CAPSULE PO (17:29)
[2023-08-22] MEDS: ceFAZolin 1 GM/NS 50 ML 1 GM/50 ML BAG IVPB (20:55)
[2023-08-23 04:00] VITALS: BP 106/62; PULSE 56; RESP 13; TEMP 36.7; O2SAT 94
[2023-08-23] MEDS: ceFAZolin 1 GM/NS 50 ML 1 GM/50 ML BAG IVPB (05:05)
[2023-08-23 06:45] LABS: Hematocrit 39.5 % (42.0-52.0); Hemoglobin 12.8 g/dL (14.0-18.0)
[2023-08-23 06:59] LABS: Anion Gap 5 mmol/L (8-16); Blood Urea Nitrogen 13 mg/dL (9-20); Calcium 8.9 mg/dL (8.4-10.2); Carbon Dioxide 27 mmol/L (22-30); Chloride 104 mmol/L (98-107); Estimated CRCL calculation 60 ml/min; Estimated Glomerular Filt Rate > 60; Glucose 106 mg/dL (65-110); Potassium 4.4 mmol/L (3.4-5.0); Sodium 136 mmol/L (137-145)
--- NOTE | 2023-08-23 08:09 | WPDANESPN ---
Anes - Prog Note Post-Op Date/Time: 08/23/23 08:09 Cardiovascular status: normal Respiratory status: normal Airway patency: baseline Mental status: baseline Post-Op hydration status: normal Vital Signs: Last Vital Signs Temp 36.7 C 08/23/23 04:00 Pulse 56 L 08/23/23 04:00 Resp 13 08/23/23 04:00 BP 106/62 08/23/23 04:00 Pulse Ox 94 08/23/23 04:00 O2 Del Method Room Air 08/22/23 15:14 O2 Flow Rate 5 08/22/23 13:46 Pain Score (VAS): 0/10 I/O: Intake & Output 08/22/23 08/23/23 08/23/23 23:59 07:59 15:59 Intake Total 540 1000 Output Total 825 77476 Balance -285 -9300 Laboratory Tests 08/23/23 06:21 08/23/23 06:21 08/22/23 08/23/23 10:53 06:21 WBC 8.6 RBC 4.38 L Hgb 13.8 L 12.8 L Hct 43.5 39.5 L MCV 99.3 MCH 31.5 MCHC 31.7 L RDW 13.2 Plt Count 232 MPV 9.3 Immature Gran % (Auto) 0.2 Neut % (Auto) 56.1 Lymph % (Auto) 30.2 [place] % (Auto) 6.7 Eos % (Auto) 5.8 H Baso % (Auto) 1.0 Lymph # (Auto) 2.61 [place] # (Auto) 0.6 Eos # (Auto) 0.5 H Baso # (Auto) 0.1 Abs Immat Gran (auto) 0.02 Absolute Neuts (auto) 4.8 Absolute Nucleated RBC 0.0 Nucleated RBC % 0.0 PT 13.4 INR 1.0 APTT 29.3 Sodium 139 136 L Potassium 3.8 4.4 Chloride 105 104 Carbon Dioxide 27 27 Anion Gap 7 L 5 L BUN 15 13 Creatinine 1.00 0.90 Estim Creat Clear Calc 55 60 Estimated GFR > 60 > 60 Glucose 102 106 Calcium 9.2 8.9 Urine Color Yellow Urine Appearance Cloudy H Urine pH 6.0 Ur Specific [place] 1.016 Urine Protein Trace Urine Glucose (UA) Negative Urine Ketones Negative Ur Blood (Man) Non-hemolyzed trace Urine Nitrate Positive H Urine Bilirubin Negative Urine Urobilinogen 1.0 Leukocyte Esterase Rfl 3+ H Urine RBC 0-2 Urine WBC >100 H Ur Squamous Epith Cells None seen Urine Bacteria 4+ H Urine Casts 0-2 Post-procedural complaints: none Patient Feedback: Patient satisfied with anesthetic care.
--- NOTE | 2023-08-23 08:25 | WPDUROPN2 ---
Progress Note: A&P Assessment and Plan (1) BPH (benign prostatic hyperplasia): Code(s): N40.0 - Benign prostatic hyperplasia without lower urinary tract symptoms Status: Acute Assessment and Plan: Doing well postoperative day 1. Will hold CBI. If remains clear will discharge home with Sexton catheter. Will plan on removal on Monday or Monday. Subjective Subjective Date/Time Seen: 08/23/23 08:25 Post Op day: 1 (Prostate resection) Principal diagnosis: BPH with retention Interval history: Jose Luis is feeling well today. His urine is clear with very minimal CBI. No complaints. Review of Systems Review of Systems: All systems reviewed & are unremarkable except as noted in HPI and below Exam Const: General: cooperative and comfortable Resp: Effort & Inspection: normal respiratory effort Cardio: Rate: regular rate Rhythm: regular rhythm Urinary Catheter: Urinary Catheter: patent and draining and urine clear Objective Data Vital Signs Vital Signs: Vital Signs - 24 hr 08/22/23 10:32 08/22/23 13:32 08/22/23 13:46 Temperature 36.8 C 36.4 C Pulse Rate 89 82 58 L Respiratory Rate 18 17 18 Blood Pressure 112/78 135/86 107/70 Pulse Oximetry 95 100 100 Oxygen Delivery Room Air Simple Face Mask Simple Face Mask Oxygen Flow Rate 5 5 08/22/23 14:00 08/22/23 14:15 08/22/23 14:30 Temperature Pulse Rate 58 L 60 60 Respiratory Rate 16 16 14 Blood Pressure 110/76 117/76 119/76 Pulse Oximetry 99 96 97 Oxygen Delivery Room Air Room Air Room Air Oxygen Flow Rate 08/22/23 14:45 08/22/23 15:14 08/22/23 17:15 Temperature 35.9 C L Pulse Rate 58 L 65 64 Respiratory Rate 12 16 18 Blood Pressure 119/84 116/79 115/67 Pulse Oximetry 97 100 96 Oxygen Delivery Room Air Room Air Oxygen Flow Rate 08/22/23 15:30 08/22/23 15:45 08/22/23 16:15 Temperature 36.2 C L 36.3 C L 36.3 C L Pulse Rate 64 63 64 Respiratory Rate 16 16 16 Blood Pressure 124/56 L 115/78 111/73 Pulse Oximetry 93 93 94 Oxygen Delivery Oxygen Flow Rate 08/22/23 20:00 08/22/23 23:50 08/23/23 04:00 Temperature 36.8 C 36.8 C 36.7 C Pulse Rate 64 61 56 L Respiratory Rate 13 13 13 Blood Pressure 110/70 112/72 106/62 Pulse Oximetry 94 95 94 Oxygen Delivery Oxygen Flow Rate Intake/Output Intake/Output: Intake & Output 08/20/23 08/21/23 08/22/23 08/23/23 23:59 23:59 23:59 23:59 Intake Total 1340 1000 Output Total 2750 60943 Balance -1410 -9300 Meds/Results Medications: Active Medications Generic Name Dose Route Start Last Admin Trade Name Freq PRN Reason Stop Dose Admin Hydrocodone Bitart/Acetaminophen 1 tab 08/22/23 15:16 Hydrocodone/Acetaminophen (*Crx) 5-325 Mg Tablet PO Q4H PRN Pain Rated 1-6 Atorvastatin Calcium 10 mg 08/23/23 09:00 Atorvastatin 10 Mg Tablet BY MOUTH Q48HR JAJA Cephalexin HCl 500 mg 08/23/23 13:00 Cephalexin 500 Mg Capsule PO QID JAJA Docusate Sodium 100 mg 08/22/23 17:00 08/22/23 17:29 Docusate Sodium 100 Mg Capsule PO 100 mg BID JAJA Administration Hyoscyamine 0.125 mg 08/22/23 15:16 Hyoscyamine Sulfate 0.125 Mg Tablet SUBLINGUAL Q6H PRN Bladder Spasm Morphine Sulfate 2 mg 08/22/23 15:16 Morphine Sulfate (*Crx) 2 Mg/Ml Inj IV PUSH Q2H PRN Pain Rated 7-10 Naloxone HCl 0.1 mg 08/22/23 15:16 Naloxone Hcl 0.4 Mg/Ml Vial IV PUSH Q2M PRN Opiate Reversal Ondansetron HCl 4 mg 08/22/23 15:16 Ondansetron Inj 4 Mg/2 Ml Vial IV PUSH Q12H PRN Nausea And Vomiting Labs Labs: Laboratory Results - last 24 hr 08/22/23 08/23/23 10:53 06:21 WBC 8.6 RBC 4.38 L Hgb 13.8 L 12.8 L Hct 43.5 39.5 L MCV 99.3 MCH 31.5 MCHC 31.7 L RDW 13.2 Plt Count 232 MPV 9.3 Immature Gran % (Auto) 0.2 Neut % (Auto) 56.1 Lymph % (Auto) 30.2 [place] % (Auto) 6.7 Eos % (Auto) 5.8 H Baso % (Auto) 1.0 Lymph # (Auto) 2.61 Mon
[2023-08-23 08:41] VITALS: BP 109/69; PULSE 64; RESP 18; TEMP 37; O2SAT 95
[2023-08-23] MEDS: DOCUSATE SODIUM 100 MG CAPSULE PO (08:43)
[2023-08-23] MEDS: ATORVASTATIN 10 MG TABLET BY MOUTH (08:43)
[2023-08-23 12:19] VITALS: BP 99/64; PULSE 59; RESP 18; TEMP 36.6; O2SAT 95
[2023-08-23] MEDS: CEPHALEXIN 500 MG CAPSULE PO (12:26)
--- NOTE | 2023-08-23 13:18 | PM.DS ---
DS: Admitting Diagnosis Discharge Date 08/23/2023 Admitting Diagnosis BPH with urinary retention DS: Discharge Diagnosis Discharge Diagnosis (1) BPH (benign prostatic hyperplasia): Code(s): N40.0 - Benign prostatic hyperplasia without lower urinary tract symptoms Status: Acute Assessment and Plan: Discharged home with Sexton leg bag. Patient have Sexton removed Monday or Monday. DS: Summary Hospital Course Hospital Course: Patient underwent an uneventful transurethral resection of his prostate. Postoperatively he has done well. His urine was clear on postoperative day 1 his CBI was stopped. Urine remained cleared to be discharged home with Sexton catheter. Plans to remove in on Monday or Monday is to call for that appointment. Pathology is pending at time discharge. Time Spent with Patient Time attestation: Total time spent providing and/or coordinating discharge services: DS: Data Data Completed and Pending Completed studies during hospitalization: Pending at discharge 08/22/23 13:08 Surgical [PTH] Routine Labs on day of discharge: Labs from last 24 hours 08/23/23 06:21 Hgb 12.8 L Hct 39.5 L Sodium 136 L Potassium 4.4 Chloride 104 Carbon Dioxide 27 Anion Gap 5 L BUN 13 Creatinine 0.90 Estim Creat Clear Calc 60 Estimated GFR > 60 Glucose 106 Calcium 8.9 Discharge Plan Discharge Patient Disposition: Home, Self-Care Discharge Instructions: Discharged home with Sexton leg bag. Instruct patient on catheter care and leg bag. Patient to call for appointment to have Sexton on Monday or Monday. Patient Instructions: How to Stop Smoking (GEN), Sexton Catheter Placement and Care (DC), Urinary Leg Bag (GEN) Discharge Medications: New sulfamethoxazole-trimethoprim [Bactrim DS] 800-160 mg tablet 1 tablet PO Q12H Qty: 12 0RF tramadol 50 mg tablet 50 mg PO Q6H PRN (Reason: pain) Qty: 20 0RF Continued tamsulosin 0.4 mg capsule 1 mg PO DAILY multivit with min-folic acid 0.4 mg Tablet 1 tablet PO DAILY atorvastatin 10 mg tablet See Rx Instructions .ROUTE .COMPLEX Qty: 45 3RF Dose Instruction: TAKE 1 TABLET EVERY OTHER DAY Rx Instructions: TAKE 1 TABLET EVERY OTHER DAY
== END 2023-08-23 13:40 | disposition home or self-care (01) ==
LOC: ANHSURGERY 10:21 → ANH3MEDSUR 15:56
PROVIDERS: PCP Family Medicine; Visit Provider Urology
PROC: 0VT08ZZ Resection of Prostate, Via Natural or Artificial Opening Endoscopic (ICD-10-PCS; CPT 52601; principal; 2023-08-22 12:30)
DX: N40.1 Benign prostatic hyperplasia with lower urinary tract symptoms (principal); N41.1 Chronic prostatitis; R33.8 Other retention of urine; R30.0 Dysuria; F17.210 Nicotine dependence, cigarettes, uncomplicated; Z85.51 Personal history of malignant neoplasm of bladder
CPT/HCPCS: 52601; 36415; 80048; 81001; 85014; 85018; 85025; 85610; 85730; 87086; 87088; 88305; 93005; A9270; J0690; J1100; J2405; J2704; J3010; J7120

== ENCOUNTER 2023-09-16 13:27 | Outpatient (CLI) | payer MEDICARE, OTHER, SELFPAY ==
--- NOTE | ~2023-09-16 | MR_ITS ---
MRI of the abdomen: Clinical indication: Pancreatic cyst. Technique: Coronal SSFSE ARC, WATER:coronal LAVA-FLEX, Coronal 2D FIESTA FatSat, Axial SSFSE BH ARC, Axial 3D DualEcho BH, Axial SSFSE-IR, Axial DWI b=500, Axial 2D FIESTA FatSat, pre and dynamic postco ntrast Axial LAVA ARC, postcontrast Coronal In and Opposed phase LAVA FLEX . Following intravenous ad ministration of 15 cc MultiHance gadolinium, T1-weighted fat-sat imaging was performed in the axial a nd coronal planes. COMPARISON: 09/07/2022 Findings: Gallbladder is unremarkable. The common bile duct is normal in course and caliber. No filli ng defects are seen within the CBD. No evidence of intrahepatic biliary ductal dilatation. The pancre atic duct is normal in size. Liver, spleen, and adrenal glands appear normal. Stable 1.5 cm cystic mass at the uncinate process of the pancreas. Multiple bilateral renal cysts are present. The aorta and the paraaortic regions appea r normal. No abnormal postcontrast enhancement identified. Impression: Stable 1.5 cm cystic mass at the uncinate processes the pancreas. Multiple bilateral renal cysts. Reviewed, dictated and finalized at location . ERING APPLICATOR Impression: Stable 1.5 cm cystic mass at the uncinate processes the pancreas. Multiple bilateral renal cysts.
== END 2023-09-16 13:28 | disposition home or self-care (01) ==
PROVIDERS: PCP Family Medicine; Visit Provider Nurse Practitioner Family
DX: K86.2 Cyst of pancreas (principal); N28.1 Cyst of kidney, acquired
CPT/HCPCS: 74183; 76376; A9577

== ENCOUNTER 2024-07-11 10:47 | Outpatient (CLI) | payer MEDICARE, OTHER, SELFPAY ==
--- NOTE | ~2024-07-11 | CT_ITS ---
CT Scan of the Chest without Contrast: Clinical Indication: Pulmonary nodule, lung cancer screening Technique: Contiguous sections were acquired throughout the chest without intravenous contrast. Dose reduction technique was used on this scan by utilizing automated exposure control and iterative recon struction technique. The dose-length product (DLP) was 90.48 mGy-cm. Findings: There is no evidence of any significant mediastinal, hilar or axillary lymphadenopathy. The mediastin al soft tissues appear normal. There is no evidence of pleural or pericardial effusion. There is mild emphysema. Stable 3 mm nodule noted right lower lobe (axial image 66). Stable 2 mm left upper lobe pulmonary nodule present (axial image 54). There is left lower lobe atelectatic change wi th possible cutoff appearance of the left lower lobe bronchus (axial image 64 for example). Images through the upper abdomen reveal no abnormalities. Impression: Lung RADS 2-S: Benign appearance. 12 month follow-up screening CT advised. Left lower lobe atelectasis with somewhat cut off appearance of the left lower lobe bronchus. This co uld reflect mucous plugging/debris, however small endobronchial lesion cannot be completely excluded based on this exam. Recommend short-term follow-up exam to assess for reexpansion of left lower lobe. Reviewed, dictated and finalized at location . GER Impression: Lung RADS 2-S: Benign appearance. 12 month follow-up screening CT advised. Left lower lobe atelectasis with somewhat cut off appearance of the left lower lobe bronchus. This could reflect mucous plugging/debris, however small endobro nchial lesion cannot be completely excluded based on this exam. Recommend short -term follow-up exam to assess for reexpansion of left lower lobe.
== END 2024-07-11 10:48 | disposition home or self-care (01) ==
PROVIDERS: PCP Family Medicine; Visit Provider Nurse Practitioner Family
DX: R91.1 Solitary pulmonary nodule (principal); J98.11 Atelectasis; Z87.891 Personal history of nicotine dependence
CPT/HCPCS: 71271

== ENCOUNTER 2024-10-09 11:36 | Outpatient (NON) | payer MEDICARE, OTHER, SELFPAY ==
--- OUTSIDE RECORDS SUMMARY | 2024-10-09 13:22 | XMS_ITS | Patient Health Record ---
Author Organization [facility] Address [address] [place] [address] Support Name Relationship Address Phone Jose Luis Han Guarantor Unknown [phone] Reason For Referral No Information Plan Of Treatment No Information
--- OUTSIDE RECORDS SUMMARY | 2024-10-09 13:22 | XMS_ITS ---
Author Organization [facility] Address [address] [place] [address] Care Team Providers Care Lavatory Attendant Name Role Phone zzzzMigration, zzzzProvider Unavailable Unav ailable REASON FOR VISIT EMR-Marvin Encounters Encounter Location Date Provider Diagnosis [facility] [address] [place] [address] 05/28/2023 zzzzProvider zzzzMigration Plan Of Treatment No Information Progress Notes * Jose Luis LIM[birth year]OB:[birth year] (79 yo M)Acc No.[id number]:05/28/2023 Patient: Aminata JENNINGSJose Luis SPICER :1945 A ge:77 Y S ex:Male Address: [facility] [address] Subjective: * Chief Complaints: * E MR-Marvin * Medical History: * Surgical History: * Hospitalization/Major Diagno stic Procedure: * Medications: Objective: * Vitals: * Physical Examination: Assessment: Plan: * Treatment: * Procedure Codes: * * Date:
--- OUTSIDE RECORDS SUMMARY | 2024-10-09 13:22 | XMS_ITS | Clinical Summary ---
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 Gender Identity Not on file Sexual Orientation Not on file Plan of Treatment Health Maintenance Due Date Last Done Comments Hepatitis C 1963 Annual Medicare Wellness Visit 2011 Pneumococcal Vaccine: 65+ Years (1 of 1 - PCV) 2011 DTaP, Tdap and Td Vaccines (1 - Tdap) 12/28/2019 12/27/2019 RSV Immunization or 60+ Years (1 - 1-dose 75+ series) 2021 Zoster Vaccines (2 of 2) 08/28/2021 07/03/2021 COVID-19 Vaccine (3 - season) 2024 07/08/2021, 10/13/2020 Influenza Adult (#1) 2024 03/30/2020, 04/26/2019, 06/14/2018, Additional history exists Meningococcal B Vaccine Aged Out No l onger eligible based on patient's age to complete this topic Meningococcal Vaccine Aged Out No debbie phyllis eligible based on patient's age to complete this topic RSV Immunizations Under 20 Months Aged Out No longer eligible based on patient's age to complete this topic Insurance MEDICARE [facility] Care Teams Dock Operator Relationship Specialty Start Date End Date Jose Goetz MD PCP - General FAMILY PRACTICE 08/31/21
--- OUTSIDE RECORDS SUMMARY | 2024-10-09 13:22 | XMS_ITS ---
Author Organization [facility] Address [address] [address] [place] [address] Care Team Providers Care Wrapper Opener Name Role Phone zzzzMigration, zzzzProvider Unavailable Unav ailable REASON FOR VISIT EMR-Marvin Encounters Encounter Location Date Provider Diagnosis [facility] [address] [facility] [address] [place] [address] 05/27/2023 zzzzProvider zzzzMigration Plan Of Treatment No Information Progress Notes * Jose Luis LIMONDOB:[birth year] (79 yo M)Acc No.[id number]:05/27/2023 Patient: Aminata SALINASJose Luis Richardson :1945 A ge:77 Y S ex:Male Address: [facility] [address] Subjective: * Chief Complaints: * E MR-Marvin * Medical History: * Surgical History: * Hospitalization/Major Diagno stic Procedure: * Medications: Objective: * Vitals: * Physical Examination: Assessment: Plan: * Treatment: * Procedure Codes: * * Date:
--- OUTSIDE RECORDS SUMMARY | 2024-10-09 13:23 | XMS_ITS | Clinical Summary ---
Author Organization [facility] Address [address] [place] [address] Care Team Providers Care Powerhouse Helper Name Role Phone Jose Goetz MD Primary Care Provider +1- [phone] Source Comments [facility],non-owned Affiliates and Associated Physician Practices is amultiple site organization consisting of ambulatory clinics and hospital sitesin [place], [place], [place] and [place]. This disclosure is being madepursuant to the Care Everywhere program and may not contain all information available regarding this patient. Last updated 18.[facility] Allergies No known active allergies Immunizations Name Administration Dates Next Due INFLUENZA VACCINE, HIGH-DOSE , QUADR. (FLUZONE HIGH-DOSE QUADRIVALENT; 65Y+), 0.7 ML (HD-IIV4) 04/26/2019 Social History Tobacco Use Types Packs/Day Years Used Date Smoking Tobacco: Never Assessed Sex and Gender Information Value Date Recorded Sex Assigned at Not on file Gender Identity Not on file Sexual Orientation Not on file Plan of Treatment Health Maintenance Due Date Last Done Comments MEDICARE AWV 12 MONTHS 1945 HEPATITIS C SCREENING 07/16/1964 DTAP/TDAP/TD VACCINES (1 - Tdap) 1965 PNEUMOCOCCAL VACCINE 50+ (1 of 1 - PCV) 1996 ZOSTER VACCINE (1 of 2) 1996 Respiratory Syncytial Virus (RSV) Vaccine Pt: or over 60 yrs (1 - 1-dose 75+ series) 2021 COVID-19 VACCINE ( - 2023-2 5 season) 2024 INFLUENZA VACCINE (#1) 2024 04/26/2019 DEPRESSION SCREENING 08/07/2024 HEPATITIS B VACCINE Aged Out No longe r eligible based on patient's age to complete this topic HIB VACCINE Aged Out No longer eligi ble based on patient's age to complete this topic HPV VACCINE Aged Out No longer eligi ble based on patient's age to complete this topic MENINGOCOCCAL (Group B) VACCINE Aged Out No longer eligible based on patient's age to complete this topic MENINGOCOCCAL VACCINE Aged Out No debbie phyllis eligible based on patient's age to complete this topic Care Teams Powerhouse Helper Relationship Specialty Start Date End Date Jose Goetz MD [address] [place] [phone] PCP - General 10/07/21
--- OUTSIDE RECORDS SUMMARY | 2024-10-09 13:23 | XMS_ITS | Referral Summary ---
Author Organization [facility] [employer] Address [address] [facility] [place] [address] Care Team Providers Care Sand Mixer Operator Name Role Phone Jose Goetz MD Primary Care Provider +1- [phone] Source Comments [facility] [employer],non-owned Affiliates and Associated Physician Practices is amultiple site organization consisting of ambulatory clinics and hospital sitesin [place], [place], [place] and [place]. This disclosure is being madepursuant to the Care Everywhere program and may not contain all information available regarding this patient. Last updated 18.[facility] [employer] Allergies No known active allergies Immunizations Name Administration Dates Next Due INFLUENZA VACCINE, HIGH-DOSE , QUADR. (FLUZONE HIGH-DOSE QUADRIVALENT; 65Y+), 0.7 ML (HD-IIV4) 04/26/2019 Social History Tobacco Use Types Packs/Day Years Used Date Smoking Tobacco: Never Assessed Sex and Gender Information Value Date Recorded Sex Assigned at Not on file Gender Identity Not on file Sexual Orientation Not on file Plan of Treatment Not on file Care Teams Sand Mixer Operator Relationship Specialty Start Date End Date Jose Goetz MD [address] [place] [address] PCP - General 10/07/21
--- OUTSIDE RECORDS SUMMARY | 2024-10-09 13:23 | XMS_ITS | Patient Health Summary ---
Author Organization [facility] Address [address] [place] [address] Care Team Providers Care Offal Baler Name Role Phone Jose Goetz MD Primary Care Provider +1- [phone] Note from [facility],non-owned Affiliates and Associated Physician Practices is amultiple site organization consisting of ambulatory clinics and hospital sitesin [place], [place], [place] and [place]. This disclosure is being madepursuant to the Care Everywhere program and may not contain all information available regarding this patient. Last updated 18.[facility] Allergies No known active allergies Immunizations * INFLUENZA VACCINE, HIGH-DOSE, QUADR. (FLUZONE HIGH-DOSE QUADRIVALENT; 65Y+), 0.7 ML (HD-IIV4)(Given 04/26/2019) Social History Tobacco Use Types Packs/Day Years Used Date Smoking Tobacco: Never Assessed Sex and Gender Information Value Date Recorded Sex Assigned at Not on file Gender Identity Not on file Sexual Orientation Not on file Care Teams Offal Baler Relationship Specialty Start Date End Date Jose Goetz MD [address] [place] [id number] PCP - General 10/07/21
[2024-10-09 14:11] LABS: IFOB Positive Control Positive; Immunochemical Fecal Occult Bl Negative (N)
== END 2024-10-09 11:37 | disposition home or self-care (01) ==
LOC: ANHLAB 11:40
PROVIDERS: PCP Nurse Practitioner Family; Visit Provider Nurse Practitioner Family
DX: D64.9 Anemia, unspecified (principal)
CPT/HCPCS: 82274

== ENCOUNTER 2024-11-20 00:11 | Day surgery (SDC) | payer MEDICARE, OTHER, SELFPAY ==
[2024-11-11 13:10] VITALS: BMI 22.9
--- OUTSIDE RECORDS SUMMARY | 2024-11-20 00:14 | XMS_ITS | Clinical Summary ---
Author Organization [facility] [employer] Address [address] [place] [address] Care Team Providers Care Marine Superintendent Name Role Phone Jose Goetz MD Primary Care Provider +1- [phone] Source Comments [facility] [employer],non-owned Affiliates and Associated Physician Practices is amultiple site organization consisting of ambulatory clinics and hospital sitesin [place], [place], [place] and [place]. This disclosure is being madepursuant to the Care Everywhere program and may not contain all information available regarding this patient. Last updated 18.[facility] [employer] Allergies No known active allergies Immunizations Immunization Administration Dates Next Due INFLUENZA VACCINE, HIGH-DOSE , QUADR. (FLUZONE HIGH-DOSE QUADRIVALENT; 65Y+), 0.7 ML (HD-IIV4) 04/26/2019 Social History Tobacco Use Types Packs/Day Years Used Date Smoking Tobacco: Never Assessed Sex and Gender Information Value Date Recorded Sex Assigned at Not on file Legal Sex Male 4:31 PM CDT Gender Identity Not on file Sexual Orientation [...] VACCINE ( - 2023-2 5 season) 2024 DEPRESSION SCREENING 08/07/2024 INFLUENZA VACCINE (Season Ended) 2025 04/26/20 19 HEPATITIS B VACCINE Aged Out No longe r eligible based on patient's age to complete this topic HIB VACCINE Aged Out No longer eligi ble based on patient's age to complete this topic HPV VACCINE Aged Out No longer eligi ble based on patient's age to complete this topic MENINGOCOCCAL (Group B) VACC INE SHARED DECISION-MAKING Aged Out No longer eligibl e based on patient's age to complete this topic MENINGOCOCCAL GROUPS A/C/Y/W VACCINE Aged Out No longer eligible b ased on patient's age to complete this topic Insurance MEDICARE [facility] MEDICARE MEDICARE MEDICARE Care Teams Marine Superintendent Relationship Specialty Start Date End Date Jose Goetz MD [address] [place] [phone] PCP - General 10/07/21
--- OUTSIDE RECORDS SUMMARY | 2024-11-20 00:14 | XMS_ITS | Clinical Summary ---
Author Organization [facility] Address [address] [place] [address] Care Team Providers Care Sand Mill Grinder Name Role Phone Jose Goetz MD Primary Care Provider +1- [phone] Social History Tobacco Use Types Packs/Day Years Used Date Smoking Tobacco: Never Assessed Sex and Gender Information Value Date Recorded Sex Assigned at Not on file Legal Sex Male 9:42 AM TILESETTER Gender Identity Not on file Sexual Orientation Not on file Plan of Treatment Health Maintenance Due Date Last Done Comments Hepatitis C 1963 Annual Medicare Wellness Visit 2011 Pneumococcal Vaccine: 50+ Years (1 of 1 - PCV) 2011 DTaP, Tdap and Td Vaccines ( 1 - Tdap) 12/28/2019 12/27/2019 RSV Immunization or 60+ Years (1 - 1-dose 75+ series) 2021 Zoster Vaccines (2 of 2) 08/28/2021 07/03/2021 COVID-19 Vaccine (3 - 2023-2 5 season) 2024 07/08/2021, 10/13/2020 Meningococcal B Vaccine Aged Out No l onger eligible based on patient's age to complete this topic Meningococcal Vaccine Aged Out No debbie phyllis eligible based on patient's age to complete this topic RSV Immunizations Under 20 Months Aged Out No longer eligible b ased on patient's age to complete this topic Insurance MEDICARE [employer] Care Teams Sand Mill Grinder Relationship Specialty Start Date End Date Jose Goetz MD PCP - General FAMILY PRACTICE 08/31/21
[2024-11-20 10:04] VITALS: BP 109/79; PULSE 100; RESP 19; TEMP 36; O2SAT 96; BMI 23.5
[2024-11-20] MEDS: LACTATED RINGERS 1,000 ML 150 ML IV CONT (10:14)
--- NOTE | 2024-11-20 10:43 | P.PNAN_ITS ---
Anes - Initial Pre Proc Eval Procedure: Operation Date: 11/20/24 11:00 Proposed Procedures p Colonoscopy - Michael Marc MD Date/Time: 11/20/24 10:43 Surgeon: Michael Marc MD Pre Op Diagnosis: Anemia,Personal hx of colon polyps Patient Data Age: 79 Gender: M Height: 1.75 m Weight: 72.2 kg Last Vital Signs Temp 36.0 C L 11/20/24 10:04 Pulse 100 11/20/24 10:04 Resp 19 11/20/24 10:04 BP 109/79 11/20/24 10:04 Pulse Ox 96 11/20/24 10:04 O2 Del Method Room Air 11/20/24 10:04 Allergies Allergy/AdvReac Type Severity Reaction Status Date / Time No Known Allergies Allergy Verified 11/20/24 10:03 Home Medications ?Medication ?Instructions ?Recorded ?Confirmed ?Type multivitamin with minerals-folic 1 tablet PO DAILY 09/23/21 11/11/24 History acid 0.4 mg tablet atorvastatin 10 mg tablet See Rx Instructions .Route 03/15/24 11/11/24 Rx .COMPLEX #45 tabs esomeprazole magnesium 20 mg 20 mg PO DAILY #90 caps 06/28/24 11/11/24 Rx capsule,delayed release Patient hx anesthesia problems: none Family hx anesthesia problems: none Results Review: All pre-operative results and documents have been reviewed as part of the pre- operative evaluation. [facility] Past Medical History Medical History COPD (chronic obstructive pulmonary disease) Overweight (BMI 25.0-29.9) Tubular adenoma Surgical History Surgical History S/P TURP Family History Family History Mother Patient's mother is Father Family history of cardiovascular disease Cerebrovascular accident Social History Social History Smoking packs per day: 1 Smoking cigarettes per day: 20.0 Years smoked: 60 Smoking pack-years: 60.00 Smoking status: Current every day smoker Tobacco type: cigarettes Second hand tobacco smoke exposure: Yes Alcohol intake: current Drinks per week: 20 Alcohol use details: MILEY Substance use: never Substance use type: does not use Do You Feel Safe in your Home?: Yes Lack of Transportation: No Lack of Food: Never True Current Housing: I Have Housing Concerned About Future Housing: Decline to Answer Difficulty Paying Gas/Electric Bills: Decline to Answer Difficulty Paying for Meds: Decline to Answer Currently Unemployed: Decline to Answer Education: Bachelor's Degree Difficulty w/ Childcare or Family Care: No Living arrangements: with family Spiritual care concerns: No Anes - Eval Final PreProcedure Day of Procedure 11/20/24 10:43 Patient weight: overweight Heart: regular rate and rhythm Lungs: clear to auscultation Airway: Mallampati scale Neurological: alert and oriented Last oral intake: >/= 8 hours ASA classification: IV Emergent: no Anesthetic plan: proceed Anesthesia type and monitoring: general GIVS and standard monitoring Results Review: All pre-operative results and documents have been reviewed as part of the pre- operative evaluation. Informed Consent: The patient's anesthetic plan and its attendant risks and benefits were discussed with the patient/family/POA. Questions were solicited and answers provided to the satisfaction of the patient/family/POA.
--- NOTE | 2024-11-20 10:46 | P.HP_ITS ---
H&P: HPI History of Present Illness Date/Time: 11/20/24 10:46 Chief Complaint: drop in hematocrit. Narrative: The patient is a healthy man, who even donates blood occasionally. The last time he went to donate blood , his hemoglobin was noticed to be lower than the baseline, from 15 to 12.8. There are no iron studies in the chart and the patient denies melena, hematemesis, hematochezia or rectal bleeding. He has no abdominal pain or unintentional weight loss. He is here for colonoscopy. Review of Systems Review of Systems: All systems reviewed & are unremarkable except as noted in HPI and below PMFSH Past Medical History Medical History COPD (chronic obstructive pulmonary disease) Overweight (BMI 25.0-29.9) Tubular adenoma Surgical History Surgical History S/P TURP Family History Family History Mother Patient's mother is Father Family history of cardiovascular disease Cerebrovascular accident Social History Social History Smoking packs per day: 1 Smoking cigarettes per day: 20.0 Years smoked: 60 Smoking pack-years: 60.00 Smoking status: Current every day smoker Tobacco type: cigarettes Second hand tobacco smoke exposure: Yes Alcohol intake: current Drinks per week: 20 Alcohol use details: HALIEEY Substance use: never Substance use type: does not use Do You Feel Safe in your Home?: Yes Lack of Transportation: No Lack of Food: Never True Current Housing: I Have Housing Concerned About Future Housing: Decline to Answer Difficulty Paying Gas/Electric Bills: Decline to Answer Difficulty Paying for Meds: Decline to Answer Currently Unemployed: Decline to Answer Education: Bachelor's Degree Difficulty w/ Childcare or Family Care: No Living arrangements: with family Spiritual care concerns: No Meds Home Medications and Allergies Home Medications ?Medication ?Instructions ?Recorded ?Confirmed ?Type multivitamin with minerals-folic 1 tablet PO DAILY 09/23/21 11/11/24 History acid 0.4 mg tablet atorvastatin 10 mg tablet See Rx Instructions .Route 03/15/24 11/11/24 Rx .COMPLEX #45 tabs esomeprazole magnesium 20 mg 20 mg PO DAILY #90 caps 06/28/24 11/11/24 Rx capsule,delayed release Allergies Allergy/AdvReac Type Severity Reaction Status Date / Time No Known Allergies Allergy Verified 11/20/24 10:03 Vital Signs Vital Signs - 24 hr 11/20/24 10:04 Temperature 96.8 F L Pulse Rate 100 Respiratory Rate 19 Blood Pressure 109/79 Pulse Oximetry 96 Oxygen Delivery Room Air Exam Const: General: cooperative and healthy appearing Resp: Effort & Inspection: normal respiratory effort and able to speak in complete sentences Auscultation: clear to auscultation bilaterally Cardio: Rate: regular rate Rhythm: regular rhythm GI: Inspection: normal to inspection GI Palp: No No hepatosplenomegaly p resent Auscultation: normal bowel sounds Rectal Exam: deferred Skin: General skin exam: normal color Psych: Appearance: grossly normal Mental Status: mental status grossly normal Assessment and Plan Assessment and plan (1) Colon cancer screening: Code(s): Z12.11 - Encounter for screening for malignant neoplasm of colon Status: Acute Assessment and Plan: The patient is deemed a good candidate for the procedure. Consent signed. Will proceed.
[2024-11-20 11:05] VITALS: BP 115/73; PULSE 81; RESP 29; O2SAT 95
[2024-11-20 11:15] VITALS: BP 105/74; PULSE 73; RESP 26; O2SAT 99
[2024-11-20 11:25] VITALS: BP 119/75; PULSE 70; RESP 28; O2SAT 100
== END 2024-11-20 11:34 | disposition home or self-care (01) ==
PROVIDERS: PCP Family Medicine; Visit Provider Internal Medicine Gastroenterology
PROC: 0DJD8ZZ Inspection of Lower Intestinal Tract, Via Natural or Artificial Opening Endoscopic (ICD-10-PCS; CPT 45378; principal; 2024-11-20 11:00)
DX: D64.9 Anemia, unspecified (principal); D12.2 Benign neoplasm of ascending colon; K57.30 Diverticulosis of large intestine without perforation or abscess without bleeding; F17.210 Nicotine dependence, cigarettes, uncomplicated
CPT/HCPCS: 45385; 88305; J2003; J2704; J7120

== ENCOUNTER 2024-12-31 10:46 | Outpatient (CLI) | payer MEDICARE, OTHER, SELFPAY ==
--- OUTSIDE RECORDS SUMMARY | 2024-12-31 10:51 | XMS_ITS | Clinical Summary ---
Author Organization [facility] [employer] Address [address] [facility] [place] [address] Care Team Providers Care Communications Tech Name Role Phone Jose Goetz MD Primary Care Provider +1- [phone] Source Comments [facility],non-owned Affiliates and Associated Physician Practices is amultiple site organization consisting of ambulatory clinics and hospital sitesin [place], [place], [place] and [place]. This disclosure is being madepursuant to the Care Everywhere program and may not contain all information available regarding this patient. Last updated 18.[facility] Allergies No known active allergies Immunizations Immunization [...] patient's age to complete this topic [place] [address] MEDICARE [facility] [place] [address] [place] [phone] SELF PAY NO INSURANCE Member Subscriber Plan / Payer (Ef fective for All Dates) Name:Jose Luis Limon Member ID:Not on file Relation to Subscriber:Not on file Name:JOSE LUIS LIMON Subscriber ID:Not on file (Home) Address: [address] [place] [id number] Payer ID:Not on file Group ID:Not on file Type:Self Pay Address: [place] MEDICARE MEDICARE Care Teams Communications Tech Relationship Specialty Start Date End Date Jose Goetz MD [address] [place] [phone] PCP - General 10/07/21
[2024-12-31 19:06] LABS: Iron 129 ug/dL (49-181)
[2024-12-31 19:25] LABS: Percent Iron Saturation 32 % (20-50)
[2024-12-31 19:54] LABS: Ferritin 9.06 ng/mL (11.1-264)
[2024-12-31 20:15] LABS: Basophils Absolute Auto 0.1 K/mm3 (0.0-0.1); Eosinophils Absolute Auto 0.4 K/mm3 (0-0.3); Eosinophils Percent Auto 5.4 % (0-4.4); Hemoglobin 13.7 g/dL (14.0-18.0); Immature Granulocyte Absolute 0.02 K/mm3 (0.00-0.031); Immature Granulocyte Percent A 0.2 % (0-0.5); Immature Reticulocyte Fraction 14.5 % (3.0-15.9); Lymphocytes Absolute Auto 2.12 K/mm3 (0.9-3.2); Mean Corpuscular HGB Conc 30.4 g/dl (32-36); Mean Corpuscular Hemoglobin 28.4 pg (26-34); Mean Corpuscular Volume 93.4 fl (80-100); Mean Platelet Volume 10.5 fl (7.4-10.4); Monocytes Absolute Auto 0.7 K/mm3 (0.1-0.6); Monocytes Percent Auto 9.1 % (2.6-8.5); Neutrophils Absolute Auto 4.8 K/mm3 (1.3-6.7); Neutrophils Percent Auto 58.3 % (45.5-73.1); Platelet Count Result 260 k/mm3 (150-375); Red Blood Count 4.82 M/mm3 (4.6-6.20); Red Cell Distribution Width 17.5 % (11.5-14.5); Reticulocyte Hemoglobin Conten 31.3 pg (28.2-36.6); Reticulocyte Percent 1.22 % (0.7-4.3); Reticulocytes Absolute 0.06 10^6/uL (0.02-0.10); White Blood Count 8.2 K/mm3 (4.5-10.0)
== END 2024-12-31 10:47 | disposition home or self-care (01) ==
PROVIDERS: PCP Family Medicine; Visit Provider Nurse Practitioner Family
DX: D64.9 Anemia, unspecified (principal)
CPT/HCPCS: 36415; 82728; 83540; 83550; 85025; 85046

== ENCOUNTER 2025-01-14 13:06 | Outpatient (CLI) | payer MEDICARE, OTHER, SELFPAY ==
--- NOTE | ~2025-01-14 | CT_ITS ---
CT Scan of the Chest without Contrast: Clinical Indication: Emphysema Technique: Contiguous sections were acquired throughout the chest without intravenous contrast. Dose reduction technique was used on this scan by utilizing automated exposure control and iterative recon struction technique. The dose-length product (DLP) was 80.09 mGy-cm. COMPARISON: 07/11/2024 Findings: There is no evidence of any significant mediastinal, hilar or axillary lymphadenopathy. The mediastin al soft tissues appear normal. There is no evidence of pleural or pericardial effusion. Probable mild emphysema. Stable bilateral upper lobe scarring. Stable 2 mm left upper lobe pulmonary nodule. Probable chronic left basilar atelectasis and/or scarring, similar to prior exam. Images through the upper abdomen reveal no abnormalities. Impression: Mild emphysema with stable left basilar chronic atelectasis or scarring. Endobronchial lesion in the segmental or subsegmental left lower lobe bronchus again cannot be completely excluded, but overall a ppearance is stable from prior exam. Mild bilateral upper lobe scarring is also unchanged. Stable 2 mm to upper lobe pulmonary nodule. Reviewed, dictated and finalized at [facility]. Impression: Mild emphysema with stable left basilar chronic atelectasis or scarring. Endobr onchial lesion in the segmental or subsegmental left lower lobe bronchus again cannot be completely excluded, but overall appearance is stable from prior exam . Mild bilateral upper lobe scarring is also unchanged. Stable 2 mm to upper lobe pulmonary nodule.
== END 2025-01-14 13:07 | disposition home or self-care (01) ==
LOC: MICIMG 13:08
PROVIDERS: PCP Family Medicine; Visit Provider Nurse Practitioner Family
DX: R91.8 Other nonspecific abnormal finding of lung field (principal); J43.9 Emphysema, unspecified; J98.11 Atelectasis; J84.10 Pulmonary fibrosis, unspecified; J98.09 Other diseases of bronchus, not elsewhere classified
CPT/HCPCS: 71250